=== PATIENT | female | born 1985 | race Caucasian/White ===

== ENCOUNTER 2016-06-29 10:14 | Emergency (ER) ==
--- NOTE | 2016-06-29 10:48 | PROVIDER DOCUMENTATION ---
HPI-EENT General - General Chief Complaint: Sore Throat Stated Complaint: SORE THROAT Time Seen by Provider: 06/29/16 10:46 Source: patient Allergies/Adverse Reactions: Patient Allergies Allergy/AdvReac Type Severity Reaction Status Date / Time butorphanol tartrate * Allergy Severe SEIZURE Verified 06/29/16 10:41 [From Stadol] LIKE ACTIVITY ibuprofen AdvReac Mild DIZZINESS Verified 06/29/16 10:41 - History of Present Illness-EENT General Nature of Presenting Problem: Sorethroat x 1 day with no fever. Denies c,d,sob,difficulty swallowing. Reports blisters in throat. EENT Location: reports: throat Severity: reports: moderate Onset/Duration: reports: 24 hours ago Timing: reports: still present Prearrival Treatment: Initiated no prearrival treatment Locality of Occurance: Home Similar Symptoms Previously?: No Recently seen or treated by another doctor?: No Review of Systems - Adult - REVIEW OF SYSTEMS - ADULT Constitutional: denies: chills, fever, fatique Eyes: reports: no symptoms reported Ears, Nose, Mouth & Throat: reports: throat pain. denies: ear pain, sinus problem, hoarseness, throat swelling Cardiovascular: denies: chest pain, irregular heart rate, orthopnea Respiratory: reports: no symptoms reported Gastrointestinal: reports: no symptoms reported Genitourinary: reports: no symptoms reported Musculoskeletal: reports: no symptoms reported Integumentary: reports: no symptoms reported Neurological: reports: no symptoms reported Psychiatric: reports: no symptoms reported Endocrine: reports: no symptoms reported Hematologic/Lymphatic: reports: no symptoms reported Allergic/Immunologic: reports: no symptoms reported All Other Systems: Reviewed and Negative Past History - Adult - PAST MEDICAL HISTORY-ADULT Review of Records: reports: Nursing Assessment Review, Medications Reviewed Major Childhood Illnesses: reports: denies history Cardiovascular: reports: denies history Respiratory: reports: COPD, lung disease Gastrointestinal: reports: GERD Obstetrical/Gynecological: reports: denies history Genitourinary: reports: denies history Musculoskeletal: reports: arthritis Neurological: reports: other ("nerve damage") Psychiatric: reports: anxiety, depression, ptsd Endocrine/Immune: reports: denies history Other Conditions: reports: denies history - PRIOR SURGERIES/PROCEDURES Surgical/Procedure 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 on dangers of tobacco.: Discussed manners to quit use, and f/u contacts for add'l counseling. Substance Use: alcohol Alcohol Use Frequency: occasionally Physical Exam- EENT - Physical Exam EENT Initial Vital Signs Reviewed: Yes General Appearance: appears well, alert, no apparent distress Eye Exam: bilateral eye: normal inspection, PERRL, EOMI Ear Exam: bilateral ear: auricle normal, canal normal, TM normal Nasal Exam: normal inspection Throat Exam: normal mouth inspection, other (erythemic right throat) Respiratory: chest non-tender, lungs clear, normal breath sounds, no pleuratic chest pain, no respiratory distress, no accessory muscle use Cardiovascular: normal peripheral pulses, regular rate, rhythm, no edema, no gallop, no JVD, no murmur Abdominal Exam: normal bowel sounds, non tender, soft, no organomegaly, no pulsatile mass Lymphatic: no adenopathy Back Exam: normal inspection, no CVA tenderness, no vertebral tenderness Extremity: normal range of motion, non-tender, normal gait, normal inspection, no pedal edema, no calf tenderness, normal capillary refill, pelvis stable Integumentary: normal color, normal turgor, warm/dry Neurologic: ortho tech II-XII nml as tested, no motor/sensory deficits Psych/Mental Status: AL, normal mood/affect, normal thought content, normal thought process, oriented x 3 Progress - PLAN OF CARE/RESULTS Progress/Plan/Lab Results: Orders Category Date Time Status DIRECT STREP PL Stat Lab 06/29/16 10:[address] Stat Lab 06/29/16 10:42 Ordered Vital Signs - 24 hr 06/29/16 10:37 Temperature 97.7 F Pulse Rate 86 Respiratory 18 Rate Blood Pressure 109/78 O2 Sat by Pulse 99 Oximetry Laboratory Tests 06/29/16 10:57 Group A Strep Rapid NEGATIVE Departure - Departure Time of Disposition Order: 11:18 DIAGNOSIS: Pharyngitis Qualifiers: Pharyngitis/tonsillitis etiology: unspecified etiology Qualified Code(s): J02.9 - Acute pharyngitis, unspecified Disposition: HOME 01 Certified Medical Emergency: Emergent Condition: Good Additional Instructions: ED Follow Up Instructions: You have been treated by a care provider in the Emergency Department. These instructions are being provided to you so you can have an understanding of how to care for yourself upon discharge. Upon discharge from the Emergency Department, you are responsible for making arrangements for follow-up care by a physician of your choice. Take all prescribed medications as directed. Return to the Emergency Department immediately for any new or worsening symptoms. You may call the Physician Referral phone number at [phone] to obtain a list of Physicians who are taking new patients. Prescriptions: Cefdinir 300 mg PO DAILY #20 capsule Prednisone 20 mg PO DAILY #5 tablet Referrals: None,PCP [Primary Care Provider] - Attestation - Scribe Verification/Attestation Scribe:: Nicole Gar Acting as Scribe for:: Ale Lopez Scribe documention review:: This chart was documented by a scribe and accurately reflects the service the provider performed and the decisions made by the provider.
[2016-06-29 11:34] VITALS: BP 110/78
== END 2016-06-29 11:52 | disposition home or self-care (01) ==
LOC: P.ED 10:14
DX: J02.9 Acute pharyngitis, unspecified (principal); S10.12XA Blister (nonthermal) of throat, initial encounter; J44.9 Chronic obstructive pulmonary disease, unspecified; M19.90 Unspecified osteoarthritis, unspecified site; F17.210 Nicotine dependence, cigarettes, uncomplicated; Z71.6 Tobacco abuse counseling; Z90.81 Acquired absence of spleen
CPT/HCPCS: 87081; 87430; 87804; 99283

== ENCOUNTER 2016-07-04 02:54 | Emergency (ER) ==
[2016-07-04 03:48] LABS: BASO% 0.5 % (0.0-0.8); EOS# 0.11 X1000 (0.0-0.7); HEMATOCRIT 43.4 % (37.0-47.0); LYMPH% 41.2 % (20.5-51.1); MCH 32.6 PG (27-31); MCHC 34.3 g/dL (33-37); MONO# 1.02 X1000 (0.11-0.59); MONO% 7.8 % (1.7-9.3); MPV 9.4 FL (7.4-10.4); NEUT% 49.3 % (42.2-75.2); PLT 329 X1000 (130-400); RBC 4.57 XMIL (4.2-5.4)
[2016-07-04 03:50] LABS: EOS% 0.8 % (0.0-10.0); HEMOGLOBIN 14.9 g/dL (12.0-16.0); IMM GRAN# 0.05 X1000 (0.0-0.04); IMM GRAN% 0.4 % (0.0-0.5); LYMPH# 5.39 X1000 (1.2-3.4)
[2016-07-04 03:52] LABS: MANUAL DIFF NEEDED? NO
--- NOTE | 2016-07-04 04:48 | PROVIDER DOCUMENTATION ---
HPI-Respiratory General - General Chief Complaint: Sore Throat Stated Complaint: SORE THROAT, COUGHING Time Seen by Provider: 07/04/16 03:26 Source: patient Allergies/Adverse Reactions: Patient Allergies Allergy/AdvReac Type Severity Reaction Status Date / Time butorphanol tartrate * Allergy Severe SEIZURE Verified 06/29/16 10:41 [From Stadol] LIKE ACTIVITY ibuprofen AdvReac Mild DIZZINESS Verified 06/29/16 10:41 - History of Present Illness-Resp Nature of Presenting Problem: coughing 1week phlegm with some blood Quality of Pain: reports: aching Severity in ED: reports: moderate Onset/Duration: reports: 1 week ago Timing: reports: still present Context: reports: recent URI Cough Quality/Degree: reports: productive cough, sputum, blood streaked sputum Episode Frequency: occasional episodes Current Respiratory Medication Therapy: Initiated prednisone Modifying Factors: improves with: nothing Associated Symptoms: reports: fever/chills, sore throat, wheezing Similar Symptoms Previously?: Yes Recently seen or treated by another doctor?: Yes Review of Systems - Adult - REVIEW OF SYSTEMS - ADULT Constitutional: reports: chills, fever Eyes: denies: discharge, dry eyes, redness Ears, Nose, Mouth & Throat: reports: sinus problem, throat pain. denies: ear pain Cardiovascular: reports: no symptoms reported Respiratory: reports: cough, shortness of breath Gastrointestinal: denies: abdominal pain, diarrhea, vomiting Genitourinary: denies: frequency, urinary retention, urgency Musculoskeletal: reports: no symptoms reported Integumentary: reports: no symptoms reported Neurological: reports: headache/migraines Endocrine: reports: no symptoms reported Hematologic/Lymphatic: reports: no symptoms reported Allergic/Immunologic: reports: no symptoms reported Past History - Adult - PAST MEDICAL HISTORY-ADULT Major Childhood Illnesses: reports: denies history Cardiovascular: reports: denies history Respiratory: reports: COPD, lung disease Gastrointestinal: reports: GERD Obstetrical/Gynecological: reports: denies history Genitourinary: reports: denies history Musculoskeletal: reports: arthritis Neurological: reports: other ("nerve damage") Psychiatric: reports: anxiety, depression, ptsd Endocrine/Immune: reports: denies history Other Conditions: reports: denies history - PRIOR SURGERIES/PROCEDURES Surgical/Procedure 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) - IMMUNIZATION STATUS Childhood Immunizations: See Nurse Assessment Flu Vaccine: See Nurse Assessment - FAMILY HISTORY Family History: reviewed, not pertinent - SOCIAL HISTORY Smoking: cigarettes Physical Exam-General - PHYSICAL EXAM-ADULT Initial Vital Signs Reviewed: Yes - CONSTITUTIONAL General Appearance: appears well - EYES Eyes: PERRL/EOMI - HEAD, EARS, NOSE, MOUTH & THROAT HENMT: normocephalic/atraumatic, TMs normal, pharynx normal - NECK Neck: supple - RESPIRATORY Respiratory: rhonchi - CARDIOVASCULAR Cardiovascular: regular rate, rhythm - GASTROINTESTINAL (ABDOMEN) Abdominal Exam: soft - LYMPHATIC Lymphatic: no adenopathy - MUSCULOSKELETAL Back Exam: normal inspection Extremity: normal range of motion - SKIN Integumentary: normal color, normal turgor - NEUROLOGIC Neurologic: grossly normal - PSYCHIATRIC Psych/Mental Status: oriented x 3 Progress - PLAN OF CARE/RESULTS Progress/Plan/Lab Results: Laboratory Tests 07/04/16 07/04/16 03:33 03:33 WBC 13.07 H RBC 4.57 Hgb 14.9 Hct 43.4 MCV 95.0 MCH 32.6 H MCHC 34.3 RDW Std Deviation 12.6 Plt Count 329 MPV 9.4 Immature Gran % (Auto) 0.4 Neut % (Auto) 49.3 Lymph % (Auto) 41.2 [place] % (Auto) 7.8 Eos % (Auto) 0.8 Baso % (Auto) 0.5 Immature Gran # (Auto) 0.05 H Neut # (Auto) 6.44 Lymph # (Auto) 5.39 H [place] # (Auto) 1.02 H Eos # (Auto) 0.11 Baso # (Auto) 0.06 Segmented Neutrophils Cancelled Band Neutrophils Cancelled Lymphocytes Cancelled Monocytes Cancelled Eosinophils Cancelled Basophils Cancelled Metamyelocytes Cancelled Myelocytes Cancelled Promyelocytes Cancelled Nucleated RBCs Cancelled Atypical Lymphocytes Cancelled Blast Cells Cancelled Hypochromia Cancelled Vacuolization Cancelled Toxic Granulation Cancelled Dohle Bodies Cancelled Large Platelets Cancelled Polychromasia Cancelled Poikilocytosis Cancelled Basophilic Stippling Cancelled Anisocytosis Cancelled Microcytosis Cancelled Macrocytosis Cancelled Spherocytes Cancelled Sickle Cells Cancelled Target Cells Cancelled Ovalocytes Cancelled Stomatocytes Cancelled [place] Bodies Cancelled [place] Cells Cancelled Unidentified Cells Cancelled Schistocytes Cancelled Monoscreen NEGATIVE Departure - Departure Time of Disposition Order: 04:47 DIAGNOSIS: URI (upper respiratory infection) Qualifiers: URI type: unspecified viral URI Qualified Code(s): J06.9 - Acute upper respiratory infection, unspecified; B97.89 - Other viral agents as the cause of diseases classified elsewhere Disposition: HOME 01 Certified Medical Emergency: Emergent Condition: Stable Additional Instructions: ED Follow Up Instructions: You have been treated by a care provider in the Emergency Department. These instructions are being provided to you so you can have an understanding of how to care for yourself upon discharge. Upon discharge from the Emergency Department, you are responsible for making arrangements for follow-up care by a physician of your choice. Take all prescribed medications as directed. Return to the Emergency Department immediately for any new or worsening symptoms. You may call the Physician Referral phone number at [phone] to obtain a list of Physicians who are taking new patients. Prescriptions: Guaifenesin/Codeine [Robitussin-AC] 10 ml PO Q4H PRN PRN #6 oz PRN Reason: Cough Azithromycin [Zithromax Z-Derek] 250 mg PO DIRECTED #1 pkg Referrals: None,PCP [Primary Care Provider] -
[2016-07-04] MEDS ORDERED: ROBITUSSIN PO ONE (04:49)
[2016-07-04] MEDS ORDERED: ROBITUSSIN ONE (04:51)
[2016-07-04 04:58] VITALS: BP 118/078
--- NOTE | 2016-07-04 06:44 | Diag Imaging Result Document ---
PROCEDURE NAME: CHEST-2 VIEWS - 07/04/2016 FRONTAL AND LATERAL CHEST, TWO VIEWS: COMPARISON: Compared to 05/13/2016. FINDINGS: The lungs are well expanded. The heart is not enlarged. The vessels are not distended. There are no infiltrate. No pleural effusions. IMPRESSION: No pneumonia.
== END 2016-07-04 04:57 | disposition home or self-care (01) ==
LOC: P.ED 02:54
DX: J06.9 Acute upper respiratory infection, unspecified (principal); B97.89 Other viral agents as the cause of diseases classified elsewhere; J02.9 Acute pharyngitis, unspecified; R05 Cough; R04.2 Hemoptysis; R06.2 Wheezing; R50.9 Fever, unspecified; R06.02 Shortness of breath; J44.9 Chronic obstructive pulmonary disease, unspecified; M19.90 Unspecified osteoarthritis, unspecified site; F17.210 Nicotine dependence, cigarettes, uncomplicated; Z90.81 Acquired absence of spleen
CPT/HCPCS: 71020; 85025; 86308; 99283

== ENCOUNTER 2016-08-25 15:32 | Emergency (ER) ==
[2016-08-25 15:43] VITALS: BP 147/75
[2016-08-25 16:07] LABS: URINE SOURCE CLEAN CATCH
[2016-08-25 16:19] LABS: BILIRUBIN URINE NEGATIVE (NEGATIVE); BLOOD URINE NEGATIVE (NEGATIVE); CLARITY CLEAR (CLEAR); COLOR YELLOW; GLUCOSE URINE NEGATIVE (NEGATIVE); LEUKOCYTES URINE TRACE (NEGATIVE); NITRITE URINE NEGATIVE (NEGATIVE); PROTEIN URINE NEGATIVE (NEGATIVE); UROBILINOGEN URINE NORMAL
[2016-08-25 16:46] LABS: URINE WBC <10 /HPF (<10)
[2016-08-25 16:47] LABS: URINE CULTURE PL NEEDED? YES; URINE EPITHELIAL CELLS >10 /HPF (<10); URINE RBC <10 /HPF (<10)
--- NOTE | 2016-08-25 17:06 | PROVIDER DOCUMENTATION ---
HPI-Abdominal Pain/GI Problem - General Source: patient <Gaby Shaffer - Last Filed: 08/25/16 17:15> - General Source: patient - History of Present Illness-ABD Nature of Presenting Problems: pt is a 31 y/o F present to the Er with c/o increased frequency x4days. pt states she has pain in the upper left portion of her abdomen and its tender to touch. denies dysuria, nausea, vomiting, fever, chills or vomiting. pt states she has had a little diarrhea 2 days ago. pt in no apparent distress. Abdominal Pain Onset Location: reports: LUQ Pain Radiation: reports: no radiation Quality of Pain: reports: cramping Severity in ED: reports: mild Onset/Duration: reports: 4 days ago Timing: reports: still present Exposure to sick contacts?: No Modifying Factors: improves with: nothing Associated Symptoms: reports: back/neck pain, diarrhea. denies: chest pain, constipation, cough, headaches, heartburn, joint pain, malaise Last BM: unsure Rectal Bleeding: reports: none # of Diarrhea Episodes: 1 (pt states diarrhea x2 days ago) Similar Symptoms Previously?: No Recently seen or treated by another doctor?: No <Park Aguilar - Last Filed: 08/25/16 17:57> - General Chief Complaint: UTI Symptoms Stated Complaint: PAIN IN NECK AND LOWER BACK Time Seen by Provider: 08/25/16 15:46 Allergies/Adverse Reactions: Patient Allergies Allergy/AdvReac Type Severity Reaction Status Date / Time butorphanol tartrate * Allergy Severe SEIZURE Verified 06/29/16 10:41 [From Stadol] LIKE ACTIVITY ibuprofen AdvReac Mild DIZZINESS Verified 06/29/16 10:41 Home Medications: Home Medication List Medication Instructions Recorded Confirmed Last Taken Type Cefdinir 300 mg PO DAILY #20 capsule 06/29/16 Unknown Rx Prednisone 20 mg PO DAILY #5 tablet 06/29/16 Unknown Rx Azithromycin [Zithromax Z-Derek] 250 mg PO DIRECTED #1 pkg 07/04/16 Unknown Rx Guaifenesin/Codeine [Robitussin-AC] 10 ml PO Q4H PRN PRN #6 oz 07/04/16 Unknown Rx Loperamide [Imodium] 2 mg PO PRN PRN #14 capsule 03/03/17 Unknown Rx Methocarbamol [Robaxin] 500 mg PO BID #30 tablet 08/25/16 Unknown Rx Nitrofurantoin Macrocrystal 100 mg PO BID #20 capsule 08/25/16 Unknown Rx [Nitrofurantoin] Phenazopyridine HCl [Pyridium] 100 mg PO TID #6 tablet 08/25/16 Unknown Rx Review of Systems - Adult - REVIEW OF SYSTEMS - ADULT Constitutional: denies: chills, fever, fatique, night sweats Eyes: reports: no symptoms reported Ears, Nose, Mouth & Throat: reports: no symptoms reported Cardiovascular: reports: no symptoms reported Respiratory: reports: no symptoms reported Gastrointestinal: reports: abdominal pain, diarrhea. denies: nausea, rectal bleeding, vomiting Genitourinary: denies: dysuria, discharge Musculoskeletal: reports: back pain, neck pain. denies: joint pain, joint swelling, muscle weakness Integumentary: reports: no symptoms reported Neurological: reports: no symptoms reported Psychiatric: reports: no symptoms reported Endocrine: reports: no symptoms reported Hematologic/Lymphatic: reports: no symptoms reported Allergic/Immunologic: reports: no symptoms reported All Other Systems: Reviewed and Negative <Park Aguilar - Last Filed: 08/25/16 17:57> Past History - Adult - PAST MEDICAL HISTORY-ADULT Review of Records: reports: Nursing Assessment Review Major Childhood Illnesses: reports: denies history Cardiovascular: reports: denies history Respiratory: reports: COPD, lung disease Gastrointestinal: reports: GERD Obstetrical/Gynecological: reports: denies history Genitourinary: reports: denies history Musculoskeletal: reports: arthritis Neurological: reports: other ("nerve damage") Psychiatric: reports: anxiety, depression, ptsd Endocrine/Immune: reports: denies history Other Conditions: reports: denies history - PRIOR SURGERIES/PROCEDURES Surgical/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 on dangers of tobacco.: Discussed manners to quit use, and f/u contacts for add'l counseling. Substance Use: alcohol <Park Aguilar - Last Filed: 08/25/16 17:57> Physical Exam-General - PHYSICAL EXAM-ADULT Initial Vital Signs Reviewed: Yes - CONSTITUTIONAL General Appearance: appears well, alert, no apparent distress - EYES Eyes: PERRL/EOMI, pink conjunctivae - HEAD, EARS, NOSE, MOUTH & THROAT HENMT: moist mucous membranes, normal ENT inspection - NECK Neck: non-tender, full range of motion, normal inspection - RESPIRATORY Respiratory: chest non-tender, lungs clear, normal breath sounds, no pleuratic chest pain, no respiratory distress, no accessory muscle use - CARDIOVASCULAR Cardiovascular: normal peripheral pulses, regular rate, rhythm - GASTROINTESTINAL (ABDOMEN) Abdominal Exam: soft, abnormal bowel sounds (Hyperactive bowel sounds), tenderness (Mild tenderness in LUQ) - MUSCULOSKELETAL Back Exam: normal inspection, no CVA tenderness - SKIN Integumentary: normal color, normal turgor, warm/dry - NEUROLOGIC Neurologic: grossly normal, no motor/sensory deficits - PSYCHIATRIC Psych/Mental Status: normal mood/affect, normal thought content, normal thought process, oriented x 3 <Park Aguilar - Last Filed: 08/25/16 17:57> Progress - XRAY 1 XRAY Study: Abdomen XRAY Interpretation: nonspecific bowel gas pattern, per Dr. Cortez <Gaby Shaffer - Last Filed: 08/25/16 17:15> - PLAN OF CARE/RESULTS Progress/Plan/Lab Results: Laboratory Tests 08/25/16 08/25/16 15:45 15:45 Urine Source CLEAN CATCH Urine Color YELLOW Urine Clarity CLEAR Urine pH 8.0 Ur Specific [place] 1.010 Urine Protein NEGATIVE Urine Ketones TRACE Urine Blood NEGATIVE Urine Nitrite NEGATIVE Urine Bilirubin NEGATIVE Urine Urobilinogen NORMAL Urine Microscopic RBC <10 Urine WBC TRACE A Urine Microscopic WBC <10 Ur Epithelial Cells >10 A Urine Bacteria 1+ Urine Glucose NEGATIVE Urine Test NEGATIVE Orders Category Date Time Status ABDOMEN FLAT/UPRIGHT [RAD] Stat Exams 08/25/16 16:35 Taken TEST-URINE [PREG] Stat Lab 08/25/16 15:[address] W/POSS RFLX CULT [URINALYSIS] Stat Lab 08/25/16 15:45 Completed URINE CULTURE [RM] Routine Lab 08/25/16 16:47 Ordered Vital Signs - 24 hr 08/25/16 15:42 Pulse Rate 80 Respiratory 18 Rate Blood Pressure 147/75 O2 Sat by Pulse 99 Oximetry <Park Aguilar - Last Filed: 08/25/16 17:57> Departure - Departure Time of Disposition Order: 17:15 Certified Medical Emergency: Emergent <Gaby Shaffer - Last Filed: 08/25/16 17:15> - Departure Time of Disposition Order: 17:57 <Park Aguilar - Last Filed: 08/25/16 17:57> - Departure DIAGNOSIS: Neck pain Back pain Qualifiers: Back pain location: back pain in unspecified location Chronicity: unspecified Back pain laterality: unspecified Qualified Code(s): M54.9 - Dorsalgia, unspecified Diarrhea Qualifiers: Diarrhea type: unspecified type Qualified Code(s): R19.7 - Diarrhea, unspecified UTI (urinary tract infection) Qualifiers: Urinary tract infection type: acute cystitis Hematuria presence: without hematuria Qualified Code(s): N30.00 - Acute cystitis without hematuria Disposition: HOME 01 Condition: Stable Additional Instructions: Follow up with PCP for further management. Take medications as directed. Drink plenty of fluids. ED Follow Up Instructions: You have been treated by a care provider in the Emergency Department. These instructions are being provided to you so you can have an understanding of how to care for yourself upon discharge. Upon discharge from the Emergency Department, you are responsible for making arrangements for follow-up care by a physician of your choice. Take all prescribed medications as directed. Return to the Emergency Department immediately for any new or worsening symptoms. You may call the Physician Referral phone number at [phone] to obtain a list of Physicians who are taking new patients. Prescriptions: Loperamide [Imodium] 2 mg PO PRN PRN #14 capsule PRN Reason: Diarrhea Nitrofurantoin Macrocrystal [Nitrofurantoin] 100 mg PO BID #20 capsule Phenazopyridine HCl [Pyridium] 100 mg PO TID #6 tablet Methocarbamol [Robaxin] 500 mg PO BID #30 tablet Referrals: None,PCP [Primary Care Provider] - Jaylin Quispe MD [STAFF PHYSICIAN] - Forms: Return to School/Parent Work Instructions: Loperamide tablets or capsules, Nitrofurantoin tablets or capsules, Back Pain, Adult, Phenazopyridine tablets, Urinary Tract Infection, [id number], Methocarbamol tablets Attestation - Scribe Verification/Attestation Scribe:: Park Aguilar Acting as Scribe for:: Gaby Shaffer Scribe documention review:: This chart was documented by a scribe and accurately reflects the service the provider performed and the decisions made by the provider. <Park Aguilar - Last Filed: 08/25/16 17:57> Physician Attestation
--- NOTE | 2016-08-25 18:02 | Diag Imaging Result Document ---
PROCEDURE NAME: ABDOMEN FLAT/UPRIGHT - 08/25/2016 SUPINE UPRIGHT ABDOMEN: There is gas visible in nondistended to slightly distended colon. There are multiple colonic air fluid levels on the upright view. There is some small bowel gas visible at the right lower quadrant, but there is no substantial gaseous small bowel distention seen. The hemidiaphragms are not included on the upright view which limits evaluation for free air, although there is no obvious free air seen. IMPRESSION: Bowel gas pattern which may relate to a diarrheal illness or mild colitis. There is no indication of bowel obstruction.
== END 2016-08-25 17:34 | disposition home or self-care (01) ==
LOC: P.ED 15:32
DX: N30.00 Acute cystitis without hematuria (principal); M54.2 Cervicalgia; M54.5 Low back pain; R19.7 Diarrhea, unspecified; R10.12 Left upper quadrant pain; R35.0 Frequency of micturition; R10.812 Left upper quadrant abdominal tenderness; R19.12 Hyperactive bowel sounds; J44.9 Chronic obstructive pulmonary disease, unspecified; M19.90 Unspecified osteoarthritis, unspecified site; F17.210 Nicotine dependence, cigarettes, uncomplicated; Z71.6 Tobacco abuse counseling; Z90.81 Acquired absence of spleen
CPT/HCPCS: 74020; 81001; 81025; 87088; 99283

== ENCOUNTER 2016-08-28 18:01 | Emergency (ER) ==
[2016-08-28] MEDS ORDERED: TORADOL PO ONE (19:36)
[2016-08-28] MEDS ORDERED: PEPCID PO ONE (19:36)
--- NOTE | 2016-08-28 19:37 | PROVIDER DOCUMENTATION ---
HPI-Musculoskeletal Pain/Inj - GENERAL Chief Complaint: Extremity Pain Stated Complaint: HAND PAIN Time Seen by Provider: 08/28/16 19:28 Source: patient - HX OF PRESENT ILLNESS-MUSKULOSKELTAL Nature of Presenting Problem: 31 year old WF reports she awoke this morning to the pain and swelling of the right hand/wrist. pt denies trauma, injury. Quality of Pain: reports: aching, dull Severity in ED: mild Onset/Duration: this morning Timing: still present, constant Modifying Factors: improves with: nothing Any recent injury?: No Locality of Occurance: Home Similar Symptoms Previously?: No Recently seen or treated by another doctor?: No Review of Systems - Adult - REVIEW OF SYSTEMS - ADULT Constitutional: reports: no symptoms reported. denies: chills, fever, fatique Eyes: reports: no symptoms reported. denies: discharge, blurred vision, double vision Ears, Nose, Mouth & Throat: reports: no symptoms reported. denies: ear discharge, ear pain, nose pain, loose teeth, throat pain, throat swelling Cardiovascular: reports: no symptoms reported. denies: chest pain, palpitations , syncope Respiratory: reports: no symptoms reported. denies: chronic cough, cough, shortness of breath, wheezing Gastrointestinal: reports: no symptoms reported. denies: abdominal pain, diarrhea, nausea, vomiting Genitourinary: reports: no symptoms reported. denies: dysuria, hematuria, urgency Musculoskeletal: reports: see HPI, joint pain, joint swelling. denies: bone pain, back pain, frequent leg cramps, muscle aches, muscle weakness, neck pain Integumentary: reports: no symptoms reported. denies: hives, itching, rash, skin sores/ulcer Neurological: reports: no symptoms reported. denies: ataxia, dizziness/vertigo Psychiatric: reports: no symptoms reported Endocrine: reports: no symptoms reported Hematologic/Lymphatic: reports: no symptoms reported Allergic/Immunologic: reports: no symptoms reported All Other Systems: Reviewed and Negative Past History - Adult - PAST MEDICAL HISTORY-ADULT Review of Records: reports: Old Records Reviewed, Nursing Assessment Review, Medications Reviewed, Social history reviewed & non-contributory. 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 on dangers of tobacco.: Discussed manners to quit use, and f/u contacts for add'l counseling. Substance Use: none/never Alcohol Use Frequency: never Physical Exam-Injury Related - Physical Exam-Injury Related Initial Vital Signs Reviewed: Yes General Appearance: appears well, alert, no apparent distress. negative: mild distress, moderate distress, severe distress Eyes: pink conjunctivae. negative: conjuctival exudate, pale conjunctivae Head, Ears, Nose, Mouth & Throat: normocephalic/atraumatic, moist mucous membranes, normal ENT inspection Neck: non-tender, full range of motion, supple, normal inspection. negative: C- spine tenderness, limited range of motion, pain on movement, vertebral point tenderness Respiratory: chest non-tender, lungs clear, normal breath sounds, no pleuratic chest pain, no respiratory distress, no accessory muscle use. negative: respiratory distress, decreased breath sounds, accessory muscle use, crackles, rales, rhonchi, stridor, wheezing Cardiovascular: normal peripheral pulses, regular rate, rhythm, no edema, no gallop, no JVD, no murmur Chest/Breast: no tenderness Peripheral Pulses: radial (R): 3+, radial (L): 3+, dorsalis-pedis (R): 3+, dorsalis-pedis (L): 3+ Abdominal Exam: normal bowel sounds, non tender, soft Female Genitalia/Pelvic Exam: deferred Rectal Exam: deferred Hemoccult Exam: deferred Lymphatic: no adenopathy Back Exam: normal inspection, no CVA tenderness, no vertebral tenderness Extremity: normal gait, no pedal edema, no calf tenderness, normal capillary refill, abnormal NV exam, swelling (right hand from just proximal of the wrist to the finger tips with mild swelling.), tenderness. negative: normal range of motion, non-tender, normal inspection, calf tenderness, deformity, erythema, inflammation, pulse deficit, pedal edema, slow capillary refill Integumentary: normal color, warm/dry, blanching Neurologic: grossly normal, no motor/sensory deficits Psych/Mental Status: normal mood/affect, normal thought content, normal thought process, oriented x 3 - Glascow Coma Score Best Eye Response (Alexander): (4) open spontaneously Best Verbal Response ([place]): (5) oriented Best Motor Response (Alexander): (6) obeys commands Alexander Total: 15 Progress - PLAN OF CARE/RESULTS Progress/Plan/Lab Results: Laboratory Tests 08/28/16 08/28/16 08/28/16 19:45 19:45 19:45 WBC RBC Hgb Hct MCV MCH MCHC RDW Std Deviation Plt Count MPV Immature Gran % (Auto) Neut % (Auto) Lymph % (Auto) [place] % (Auto) Eos % (Auto) Baso % (Auto) Immature Gran # (Auto) Neut # (Auto) Lymph # (Auto) [place] # (Auto) Eos # (Auto) Baso # (Auto) ESR 11 Sodium 136 Potassium 3.6 Chloride 104 Carbon Dioxide 21 L Anion Gap 12 BUN 14 Creatinine 0.7 Estimated GFR/1.73 m2 > 60 BUN/Creatinine Ratio 20 Glucose 115 H Calculated Osmolality 273 Calcium 8.9 Total Bilirubin < 0.15 L Direct Bilirubin AST 19 ALT 18 Alkaline Phosphatase 73 C-React Prot High Sens 0.560 Total Protein 6.7 Albumin 4.0 Globulin 3.0 Albumin/Globulin Ratio 1.0 Amylase Lipase 08/28/16 08/28/16 19:45 19:45 WBC 8.81 RBC 4.60 Hgb 15.1 Hct 43.9 MCV 95.4 MCH 32.8 H MCHC 34.4 RDW Std Deviation 12.9 Plt Count 287 MPV 9.9 Immature Gran % (Auto) 0.1 Neut % (Auto) 53.8 Lymph % (Auto) 36.2 [place] % (Auto) 8.6 Eos % (Auto) 1.1 Baso % (Auto) 0.2 Immature Gran # (Auto) 0.01 Neut # (Auto) 4.73 Lymph # (Auto) 3.19 Living[place] # (Auto) 0.76 H Eos # (Auto) 0.10 Baso # (Auto) 0.02 ESR Sodium Potassium Chloride Carbon Dioxide Anion Gap BUN Creatinine Estimated GFR/1.73 m2 BUN/Creatinine Ratio Glucose Calculated Osmolality Calcium Total Bilirubin 0.20 Direct Bilirubin < 0.20 AST 28 ALT 23 Alkaline Phosphatase 73 C-React Prot High Sens Total Protein 6.8 Albumin 4.0 Globulin 3.0 Albumin/Globulin Ratio 1.0 Amylase 71 Lipase 33 Orders Category Date Time Status HAND COMPLETE RIGHT [RAD] Stat Exams 08/28/16 19:33 Completed WRIST COMPLETE RIGHT [RAD] Stat Exams 08/28/16 19:34 Completed AMYLASE [CHEM] Stat Lab 08/28/16 19:45 Completed CBC WITH DIFF [HEME] Stat Lab 08/28/16 19:45 Completed CMP [COMPREHENSIVE METABOLIC PANEL] [CHEM] Stat Lab 08/28/16 19:45 Completed CRP HIGH SENSITIVITY Stat Lab 08/28/16 19:45 Completed LFT [HEPATIC FUNCTION] [CHEM] Stat Lab 08/28/16 19:45 Completed LIPASE [CHEM] Stat Lab 08/28/16 19:45 Completed SED RATE [HEME] Stat Lab 08/28/16 19:45 Completed Dexamethasone [Decadron] Med 08/28/16 22:57 Discontinued 10 mg .ROUTE .STK-MED ONE Dexamethasone [Decadron] Med 08/28/16 22:45 Discontinued 10 mg IM NOW ONE Famotidine [Pepcid] Med 08/28/16 19:36 Discontinued 20 mg PO NOW ONE Ketorolac [Toradol] Med 08/28/16 19:36 Discontinued 10 mg PO NOW ONE Reviewed radiology, H&P with Dr. Cortez, agrees with plan of care and treatment. - XRAY 1 XRAY: Right XRAY Study: Hand Impression: Normal (per Dr. Cortez) 2 XRAY: Right XRAY Study: Wrist Impression: Normal (per Dr. Cortez) Departure - Departure Time of Disposition Order: 22:40 DIAGNOSIS: Arthritis Disposition: HOME 01 Certified Medical Emergency: Emergent Condition: Stable Additional Instructions: Follow up with your primary care doctor for auto-immune testing. ED Follow Up Instructions: You have been treated by a care provider in the Emergency Department. These instructions are being provided to you so you can have an understanding of how to care for yourself upon discharge. Upon discharge from the Emergency Department, you are responsible for making arrangements for follow-up care by a physician of your choice. Take all prescribed medications as directed. Return to the Emergency Department immediately for any new or worsening symptoms. You may call the Physician Referral phone number at [phone] to obtain a list of Physicians who are taking new patients. Prescriptions: Ibuprofen [Motrin] 800 mg PO Q8H PRN PRN #20 tablet PRN Reason: inflammation Famotidine [Pepcid] 20 mg PO DAILY #20 tablet Referrals: Natasha Winn MD [STAFF PHYSICIAN] - None,PCP [Primary Care Provider] - Forms: Return to School/Parent Work Instructions: Famotidine tablets or gelcaps, Arthritis, Nonspecific, Easy-to- Read, Ibuprofen tablets and capsules Attestation - Physician/ MARGARITA Attestation Patient care was provided by Advanced Practice Provider:: Yes Advanced Practice Provider:: Inna Branch Advanced Practice Provider documentation review:: The Mid-level provider documentation, treatment plan and medical decision making was reviewed by the physician who agrees with all treatment and medical decision making by the MLP.
[2016-08-28 19:50] LABS: MANUAL DIFF NEEDED? NO
[2016-08-28 19:59] LABS: BASO% 0.2 % (0.0-0.8); EOS% 1.1 % (0.0-10.0); HEMATOCRIT 43.9 % (37.0-47.0); HEMOGLOBIN 15.1 g/dL (12.0-16.0); IMM GRAN# 0.01 X1000 (0.0-0.04); IMM GRAN% 0.1 % (0.0-0.5); LYMPH# 3.19 X1000 (1.2-3.4); LYMPH% 36.2 % (20.5-51.1); MCH 32.8 PG (27-31); MCHC 34.4 g/dL (33-37); MCV 95.4 FL (81-99); MONO# 0.76 X1000 (0.11-0.59); MONO% 8.6 % (1.7-9.3); MPV 9.9 FL (7.4-10.4); NEUT% 53.8 % (42.2-75.2); PLT 287 X1000 (130-400)
[2016-08-28 20:32] LABS: AGAP 12; ALKALINE PHOSPHATASE 73 U/L (32-104); BUN 14 mg/dL (8-22); CALCIUM 8.9 mg/dL (8.8-10.2); CHLORIDE 104 mmol/L (98-107); COSMO 273; GOT 19 U/L (10-30); GPT 18 U/L (10-36); POTASSIUM 3.6 mmol/L (3.5-5.1); SODIUM 136 mmol/L (136-145); TCO2 21 mmol/L (25-35); TOTAL BILIRUBIN < 0.15 mg/dL (0.20-1.00); TOTAL PROTEIN 6.7 g/dL (6.3-8.3)
[2016-08-28 21:33] LABS: ALKALINE PHOSPHATASE 73 U/L (32-104); AMYLASE 71 U/L (20-200); DIRECT BILIRUBIN < 0.20 mg/dL (0.00-0.20); GOT 28 U/L (10-30); GPT 23 U/L (10-36); LIPASE 33 U/L (13-60); TOTAL PROTEIN 6.8 g/dL (6.3-8.3)
[2016-08-28] MEDS ORDERED: DECADRON IM ONE (22:45)
[2016-08-28] MEDS ORDERED: DECADRON ONE (22:57)
[2016-08-28 23:06] VITALS: BP 122/78
--- NOTE | 2016-08-29 07:55 | Diag Imaging Result Document ---
PROCEDURE NAME: WRIST COMPLETE RIGHT - 08/28/2016 RIGHT WRIST THREE VIEWS: FINDINGS: No fracture. No dislocation. Old injury to the right fifth metacarpal. No joint space narrowing. IMPRESSION: No acute abnormality identified.
--- NOTE | 2016-08-29 08:42 | Diag Imaging Result Document ---
PROCEDURE NAME: HAND COMPLETE RIGHT - 08/28/2016 X-RAY RIGHT HAND 3 VIEWS, 08/28/2016: COMPARISON: None. FINDINGS: There is an old deformity of the 5th metacarpal. No acute fracture or subluxation. There are small bone cysts in the scaphoid and in the head of the 3rd metacarpal. IMPRESSION: No acute disease.
== END 2016-08-28 23:04 | disposition home or self-care (01) ==
LOC: P.ED 18:01
DX: M19.041 Primary osteoarthritis, right hand (principal); M79.641 Pain in right hand; M25.531 Pain in right wrist; M25.441 Effusion, right hand; M25.431 Effusion, right wrist; J44.9 Chronic obstructive pulmonary disease, unspecified; M19.90 Unspecified osteoarthritis, unspecified site; F17.210 Nicotine dependence, cigarettes, uncomplicated; Z71.6 Tobacco abuse counseling; Z90.81 Acquired absence of spleen
CPT/HCPCS: 80053; 80076; 82150; 83690; 85025; 85651; 86141

== ENCOUNTER 2016-09-05 19:00 | Emergency (ER) ==
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
[2016-09-05] MEDS ORDERED: ATIVAN IM ONE ×2 (19:44→23:02)
[2016-09-05 20:08] LABS: UR AMPHETAMINES QUAL NONE DETECTED (NONE DETECT); UR BARBITUATES QUAL NONE DETECTED (NONE DETECT); UR BENZODIAZEPIN QUAL NONE DETECTED (NONE DETECT); UR CANNABINOIDS QUAL NONE DETECTED (NONE DETECT); UR COCAINE QUAL NONE DETECTED (NONE DETECT); UR MDMA QUAL NONE DETECTED (NONE DETECT); UR METHADONE QUAL NONE DETECTED (NONE DETECT); UR METHAMPHETAMINE QUAL NONE DETECTED (NONE DETECT); UR OPIATES QUAL NONE DETECTED (NONE DETECT); UR OXYCODONE QUAL NONE DETECTED (NONE DETECT); UR PCP QUAL NONE DETECTED (NONE DETECT); UR TCA QUAL NONE DETECTED (NONE DETECT)
[2016-09-05 20:36] LABS: MANUAL DIFF NEEDED? NO
[2016-09-05 20:41] LABS: BASO% 0.3 % (0.0-0.8); EOS# 0.11 X1000 (0.0-0.7); EOS% 1.3 % (0.0-10.0); HEMATOCRIT 42.5 % (37.0-47.0); HEMOGLOBIN 14.4 g/dL (12.0-16.0); IMM GRAN# 0.01 X1000 (0.0-0.04); IMM GRAN% 0.1 % (0.0-0.5); LYMPH# 2.81 X1000 (1.2-3.4); LYMPH% 32.2 % (20.5-51.1); MCH 32.6 PG (27-31); MCHC 33.9 g/dL (33-37); MCV 96.2 FL (81-99); MONO# 0.63 X1000 (0.11-0.59); MONO% 7.2 % (1.7-9.3); MPV 9.9 FL (7.4-10.4); NEUT% 58.9 % (42.2-75.2); PLT 238 X1000 (130-400); RBC 4.42 XMIL (4.2-5.4)
[2016-09-05 21:09] LABS: AGAP 10; ALBUMIN 3.6 g/dL (3.5-5.0); ALKALINE PHOSPHATASE 60 U/L (32-104); BUN 12 mg/dL (8-22); CALCIUM 8.1 mg/dL (8.8-10.2); CHLORIDE 106 mmol/L (98-107); COSMO 277; GOT 13 U/L (10-30); GPT 13 U/L (10-36); POTASSIUM 3.6 mmol/L (3.5-5.1); SODIUM 138 mmol/L (136-145); TCO2 22 mmol/L (25-35); TOTAL BILIRUBIN < 0.15 mg/dL (0.20-1.00); TOTAL PROTEIN 6.2 g/dL (6.3-8.3)
[2016-09-05 21:17] LABS: FREE T4 1.09 ng/dL (0.93-1.70)
[2016-09-05] MEDS ORDERED: STERILE WATER INJ. INJ ONE (23:55)
[2016-09-05] MEDS ORDERED: GEODON IM ONE (23:55)
[2016-09-06] MEDS ORDERED: NICODERM PATCH ONE (00:38)
[2016-09-06] MEDS ORDERED: NICODERM PATCH TD ONE (00:41)
--- NOTE | 2016-09-06 02:02 | EKG Report ---
Test Performed on : 09/05/2016 7:46:13 PM Test Reason : CP Blood Pressure : / mmHG Vent. Rate : 070 BPM Atrial Rate : 070 BPM P-R Int : 192 ms QRS Dur : 106 ms QT Int : 422 ms P-R-T Axes : 047 -38 028 degrees QTc Int : 455 ms Normal sinus rhythm. with sinus arrhythmia. Possible Left atrial enlargement Left axis deviation Low voltage QRS Incomplete right bundle branch block Septal infarct (cited on or before 24-FEB-2015) Abnormal ECG When compared with ECG of 13-MAY-2016 23:20, Questionable change in initial forces of Anterior leads Unconfirmed Result
[2016-09-06] MEDS ORDERED: ATIVAN ONE (12:35)
[2016-09-06] MEDS ORDERED: ATIVAN PO ONE ×2 (12:36→16:59)
[2016-09-06] MEDS ORDERED: MOTRIN PO ONE (16:57)
[2016-09-06] MEDS ORDERED: TYLENOL PO ONE (19:24)
[2016-09-06] MEDS ORDERED: BACTROBAN CREAM TOP ONE (20:13)
[2016-09-06 20:20] VITALS: BP 115/80
[2016-09-06] MEDS ORDERED: BACTROBAN OINTMENT ONE (20:21)
== END 2016-09-06 20:35 | disposition left against medical advice (07) ==
LOC: P.ED 19:00
DX: R45.851 Suicidal ideations (principal); R94.31 Abnormal electrocardiogram [ECG] [EKG]; R07.9 Chest pain, unspecified; J44.9 Chronic obstructive pulmonary disease, unspecified; M19.90 Unspecified osteoarthritis, unspecified site; F17.210 Nicotine dependence, cigarettes, uncomplicated; Z90.81 Acquired absence of spleen
CPT/HCPCS: 80053; 80305; 81025; 82607; 84439; 84443; 84484; 85025; 93005; 96372; G0480; J2060; J3486; 80320

== ENCOUNTER 2016-09-09 13:30 | Emergency (ER) | payer OTHER ==
--- NOTE | 2016-09-09 14:43 | PROVIDER DOCUMENTATION ---
HPI-General Adult - General Source: patient - History of Present Illness -Gen Adult Nature of Presenting Problems: Pt is 31 y/o F presents to the ED with wanting treatment for MRSA. 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 Pt states recently being treated at [facility] for MRSA on L side of face. Pt denies MRSA infection right now. Pt states cough. Pt denies F Location of Pain/Injury: reports: none Pain Radiation: reports: no radiation Quality of Pain: reports: none Onset/Duration: reports: unsure Timing: reports: gone now, intermittent Context/Activities at Onset: reports: light activity Modifying Factors: improves with: nothing Associated Symptoms: reports: cough. denies: anxiety, arm pain, back/neck pain , chest pain, constipation, diaphoresis, diarrhea, dizziness, EENT symptoms, fatigue, fever/chills, genitourinary problems, headaches, heartburn, joint pain , loss of appetite, malaise, muscle aches, sinus congestion/drainage, nausea, rash, seizure, shortness of breath, sensory/motor loss, pain with inspiration, swelling/mass in abdomen, syncope, vomiting, weakness, trouble walking Similar Symptoms Previously?: Yes Recently seen or treated by another doctor?: No <Amrita Velazco - Last Filed: 09/09/16 14:43> <Cassidy Alejandro - Last Filed: 09/09/16 14:49> - General Chief Complaint: General Adult Stated Complaint: POSS LAURA INFECTION Time Seen by Provider: 09/09/16 14:20 Allergies/Adverse Reactions: Patient Allergies Allergy/AdvReac Type Severity Reaction Status Date / Time butorphanol tartrate * Allergy Severe SEIZURE Verified 06/29/16 10:41 [From Stadol] LIKE ACTIVITY hydroxyzine Allergy "makes me Verified 09/09/16 14:30 feel like I'm gonna have a heart attack" ibuprofen AdvReac Mild DIZZINESS Verified 06/29/16 10:41 Home Medications: Home Medication List Medication Instructions Recorded Confirmed Last Taken Type No Home Medications 09/09/16 09/09/16 Unknown History Review of Systems - Adult - REVIEW OF SYSTEMS - ADULT Constitutional: reports: no symptoms reported Eyes: reports: no symptoms reported Ears, Nose, Mouth & Throat: reports: no symptoms reported Cardiovascular: reports: no symptoms reported Respiratory: reports: cough. denies: shortness of breath, wheezing Gastrointestinal: reports: no symptoms reported Genitourinary: reports: no symptoms reported Musculoskeletal: reports: no symptoms reported Integumentary: reports: no symptoms reported Neurological: reports: no symptoms reported Psychiatric: reports: no symptoms reported Endocrine: reports: no symptoms reported Hematologic/Lymphatic: reports: no symptoms reported Allergic/Immunologic: reports: no symptoms reported All Other Systems: Reviewed and Negative <Amrita Velazco - Last Filed: 09/09/16 14:43> Past History - Adult - PAST MEDICAL HISTORY-ADULT Review of Records: reports: Nursing Assessment Review, Medications Reviewed, Social history reviewed & non-contributory. 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 on dangers of tobacco.: Discussed manners to quit use, and f/u contacts for add'l counseling. Substance Use: denies Living Situation: family <Amrita Velazco - Last Filed: 09/09/16 14:43> Physical Exam-General - PHYSICAL EXAM-ADULT Initial Vital Signs Reviewed: Yes - CONSTITUTIONAL General Appearance: appears well, alert, no apparent distress - EYES Eyes: PERRL/EOMI, pink conjunctivae, fundi clear, no AV nicking - HEAD, EARS, NOSE, MOUTH & THROAT HENMT: normocephalic/atraumatic, moist mucous membranes, normal ENT inspection, TMs normal, pharynx normal - NECK Neck: non-tender, full range of motion, supple, normal inspection - RESPIRATORY Respiratory: chest non-tender, lungs clear, normal breath sounds, no pleuratic chest pain, no respiratory distress, no accessory muscle use - CARDIOVASCULAR Cardiovascular: normal peripheral pulses, regular rate, rhythm, no edema, no gallop, no JVD, no murmur - GASTROINTESTINAL (ABDOMEN) Abdominal Exam: normal bowel sounds, non tender, soft, no organomegaly, no pulsatile mass - LYMPHATIC Lymphatic: no adenopathy - MUSCULOSKELETAL Back Exam: normal inspection, no CVA tenderness, no vertebral tenderness Extremity: normal range of motion, non-tender, normal gait, normal inspection, no pedal edema, no calf tenderness, normal capillary refill - SKIN Integumentary: normal color, normal turgor, warm/dry - NEUROLOGIC Neurologic: grossly normal - PSYCHIATRIC Psych/Mental Status: normal mood/affect, oriented x 3 <Amrita Velazco - Last Filed: 09/09/16 14:43> Progress - PLAN OF CARE/RESULTS Progress/Plan/Lab Results: Vital Signs - 24 hr 09/09/16 13:35 Temperature 97.8 F Pulse Rate 87 Respiratory 18 Rate Blood Pressure 125/59 O2 Sat by Pulse 100 Oximetry <Amrita Velazco - Last Filed: 09/09/16 14:43> - PLAN OF CARE/RESULTS Progress/Plan/Lab Results: Dr. Bosch brought to bedside, states we are to give her an outpatient referral to Dr. Almeida. Vital Signs Temp Pulse Resp BP Pulse Ox 09/09/16 13:35 97.8 F 87 18 125/59 100 butorphanol tartrate * [From Stadol] Allergy (Severe, Verified 06/29/16 10:41) SEIZURE LIKE ACTIVITY hydroxyzine Allergy (Verified 09/09/16 14:30) "makes me feel like I'm gonna have a heart attack" ibuprofen Adverse Reaction (Mild, Verified 06/29/16 10:41) DIZZINESS No Home Medications 09/09/16 <Cassidy Alejandro - Last Filed: 09/09/16 14:49> Departure <Amrita Velazco - Last Filed: 09/09/16 14:43> - Departure Time of Disposition Order: 14:49 Certified Medical Emergency: Emergent <Cassidy Alejandro - Last Filed: 09/09/16 14:49> - Departure DIAGNOSIS: Anxiety about health Disposition: HOME 01 Condition: Stable Additional Instructions: Follow up with your primary care physician ED Follow Up Instructions: You have been treated by a care provider in the Emergency Department. These instructions are being provided to you so you can have an understanding of how to care for yourself upon discharge. Upon discharge from the Emergency Department, you are responsible for making arrangements for follow-up care by a physician of your choice. Take all prescribed medications as directed. Return to the Emergency Department immediately for any new or worsening symptoms. You may call the Physician Referral phone number at [phone] to obtain a list of Physicians who are taking new patients. Referrals: None,PCP [Primary Care Provider] - Tyrell Almeida MD [STAFF PHYSICIAN] - Attestation - Scribe Verification/Attestation Scribe:: Amrita Velazco Acting as Scribe for:: Marbin Bosch Scribe documention review:: This chart was documented by a scribe and accurately reflects the service the provider performed and the decisions made by the provider. <Amrita Velazco - Last Filed: 09/09/16 14:43> Physician Attestation
[2016-09-09 15:09] VITALS: BP 117/79
== END 2016-09-09 15:07 | disposition home or self-care (01) ==
LOC: ED 13:30
DX: F41.8 Other specified anxiety disorders (principal); R05 Cough; J44.9 Chronic obstructive pulmonary disease, unspecified; M19.90 Unspecified osteoarthritis, unspecified site; G89.29 Other chronic pain; F17.210 Nicotine dependence, cigarettes, uncomplicated; Z71.6 Tobacco abuse counseling; Z86.14 Personal history of Methicillin resistant Staphylococcus aureus infection; Z90.81 Acquired absence of spleen